=== PATIENT | female | born 1980 | race African-American/Black ===

== ENCOUNTER 2017-07-17 01:06 | Inpatient (IN) | payer MEDICAID, OTHER ==
[~2017-07-17] VITALS: Ht 162.6 cm; Wt 77.6 kg
[2017-07-17] VITALS (56 sets, daily range): BP systolic 39–195; BP diastolic 22–134
[~2017-07-17 01:06] MED LIST: HYDR25TA PO; INSLAN SQ; INSU100C3 SQ; INSU100C6 SQ; LOT10 PO; METO-293 PO; REGLAN
[2017-07-17] MEDS ORDERED: ONDANSETRON HCL 4MG/2ML VIAL IV STA (01:45)
[2017-07-17] MEDS ORDERED: MORPHINE SULFATE 4 MG/ML CPJ (NOT FOR IM USE) IV STA (01:45)
[2017-07-17 02:21] LABS: HEMATOCRIT. 29.2 % (36.0-48.0); HEMOGLOBIN. 9.1 g/dL (12.0-16.0); MEAN CORPUSCULAR HEMOGLOBIN 27.1 pg (28.0-32.0); MEAN CORPUSCULAR VOLUME 86.8 fL (81.0-99.0); MEAN PLATELET VOLUME 10.5 fl (7.4-10.4); PLATELET 581 x1000/uL (130-400); RED BLOOD CELL COUNT 3.36 mill/uL (4.2-5.4); RED CELL DISTRIBUTION WIDTH 16.5 % (11.6-14.6)
[2017-07-17 02:24] LABS: INR 1.7; PROTHROMBIN TIME 18.1 sec (9.4-11.6)
[2017-07-17 02:25] LABS: HCG SCREEN NEGATIVE
[2017-07-17 02:39] LABS: CARBON DIOXIDE 22 mEq/L (21-32); CHLORIDE 89 mEq/L (98-107); ETHANOL BLOOD < 10 mg/dL
[2017-07-17 03:01] LABS: TROPONIN I 0.95 ng/mL (0.00-0.04)
[2017-07-17] MEDS ORDERED: SODIUM CHLORIDE 0.9% 1,000 ML IV NR (03:06)
[2017-07-17] MEDS ORDERED: ASPIRIN 81MG TABLET PO NR (03:15)
[2017-07-17] MEDS ORDERED: NITROGLYCERIN OINT 1GM/INCH UDPKT TD NR (03:15)
[2017-07-17] MEDS ORDERED: FENTANYL CITRATE/PF 50MCG/ML 2ML VIAL IV NR (03:15)
[2017-07-17] MEDS ORDERED: LEVOFLOXACIN 750MG PREMIX 150 ML IV NR (03:15)
[2017-07-17] MEDS ORDERED: METRONIDAZOLE 500 MG PREMIX 100 ML IV NR (03:15)
[2017-07-17] MEDS ORDERED: FENTANYL CITRATE/PF 50MCG/ML 2ML VIAL IV ONE ×2 (04:30→04:45)
[2017-07-17] MEDS ORDERED: VANCOMYCIN 1 G PREMIX 200 ML IV ONE (04:45)
[2017-07-17] MEDS ORDERED: TETANUS, DIPHTHERIA, PERTUSSIS VAC/PF 0.5ML (>7YR OLD) IM ONE (04:45)
[2017-07-17 04:52] LABS: PLATELET ESTIMATE MARKEDLY INCREASED
[2017-07-17] MEDS ORDERED: NOREPINEPHRINE 4 MG in DEXT 5% WATER 246 ML IV NR ×2 (08:15→09:00)
[2017-07-17] MEDS ORDERED: CLONIDINE 0.1MG TABLET PO PRN (08:15)
[2017-07-17] MEDS ORDERED: MAGNESIUM/ALUMINUM HYDROXIDE/SIMETHICONE 30ML UDC PO PRN (08:15)
[2017-07-17] MEDS ORDERED: MORPHINE SULFATE 4 MG/ML CPJ (NOT FOR IM USE) IV PRN (08:15)
[2017-07-17] MEDS ORDERED: NA PHOS,M-B/NA PHOS,DI-BA ENEMA 118ML PR PRN (08:15)
[2017-07-17] MEDS ORDERED: ACETAMINOPHEN 325MG TABLET PO PRN (08:15)
[2017-07-17] MEDS ORDERED: ACETAMINOPHEN 650MG SUPP PR PRN (08:15)
[2017-07-17] MEDS ORDERED: DOCUSATE SODIUM 100MG CAPSULE PO PRN (08:15)
[2017-07-17] MEDS ORDERED: ONDANSETRON HCL 4MG/2ML VIAL IV PRN (08:15)
[2017-07-17] MEDS ORDERED: HYDROCODONE/ACETAMINOPHEN 5/325MG TABLET PO PRN (08:15)
[2017-07-17] MEDS ORDERED: IPRATROPIUM/ALBUTEROL 0.5-3(2.5)MG/3ML NEB INH PRN (08:15)
[2017-07-17] MEDS ORDERED: GUAIFENESIN 200MG/10ML SUGAR FREE UDC PO PRN (08:15)
[2017-07-17] MEDS ORDERED: SODIUM CHLORIDE 0.9% 1000ML BAG (SEPSIS BOLUS) IV ONE (08:30)
[2017-07-17] MEDS ORDERED: SODIUM CHLORIDE 0.9% 250 ML IV NR (09:00)
[2017-07-17 11:33] LABS: T4 FREE 0.93 ng/dL (0.76-1.46)
[2017-07-17] MEDS ORDERED: INSULIN LISPRO 100 UNITS/ML SUBCUT SCH (11:45)
[2017-07-17] MEDS ORDERED: HYDROMORPHONE HCL/PF 2MG/ML CPJ IV PRN (11:45)
[2017-07-17] MEDS: INSULIN LISPRO (LOW DOSE) 100 UNITS/ML SUBCUT SCH ×3 (12:00→21:00)
[2017-07-17] MEDS: BLOOD SUGAR DIAGNOSTIC STRIP TEST SCH ×3 (12:21→21:06)
[2017-07-17] MEDS: SODIUM CHLORIDE 0.45% 1,000 ML IV SCH (12:24)
[2017-07-17] MEDS ORDERED: MEROPENEM 1,000 MG in SODIUM CHLORIDE 0.9% 100 ML IV SCH (12:30)
[2017-07-17] MEDS ORDERED: SODIUM CHLORIDE 0.9% 500 ML IV NR ×2 (13:30→17:30)
[2017-07-17 14:06] LABS: BG BASE EXCESS -4.2 mmol/L (-2.0-2.0); BG CARBOXYHEMOGLOBIN 0.5 % (0.5-1.5); BG DEOXYHEMOGLOBIN 2.5 % (0.0-5.0); BG FRACTION INSPIRED OXYGEN 28; BG HCO3 ACT 19.6 mmol/L (22.0-26.0); BG METHEMOGLOBIN 0.2 % (0.0-1.5); BG OXYGEN SATURATION 97.5 % (92.0-98.5); BG OXYHEMOGLOBIN 96.8 % (94.0-97.0); BG PCO2 30.6 mmHg (35.0-45.0); BG PH 7.424 (7.350-7.450); BG PO2 113.6 mmHg (75.0-100.0); BG SAMPLE SITE RIGHT BRACHIAL; BG TOTAL HEMOGLOBIN 8.7 g/dL (12.0-18.0); BG VENT MODE NASAL CANNULA
[2017-07-17] MEDS: MEROPENEM 500MG in NORMAL SALINE 50ML IV SCH (14:38)
[2017-07-17] MEDS: SODIUM CHLORIDE 0.9% INJ 3ML FLUSH IVF SCH ×2 (14:39→21:08)
[2017-07-17] MEDS ORDERED: VANCOMYCIN 500 MG PREMIX 100 ML IV NR (15:00)
[2017-07-17 15:18] LABS: CREATINE KINASE MB FRACTION 6.5 ng/mL (0.5-3.6)
[2017-07-17 15:39] LABS: TROPONIN I 0.98 ng/mL (0.00-0.04)
[2017-07-17] MEDS: LORAZEPAM 2MG/ML CPJ IM PRN (17:38)
[2017-07-17] MEDS: HYDROMORPHONE HCL/PF 2MG/ML CPJ IV PRN (20:44)
[2017-07-17] MEDS: PHENYLEPHRINE 20 MG in DEXT 5% WATER 248 ML IV PRN (21:27)
[2017-07-17 23:32] LABS: CREATINE KINASE MB FRACTION 6.4 ng/mL (0.5-3.6)
[2017-07-18] VITALS (100 sets, daily range): BP systolic 50–197; BP diastolic 14–122
[2017-07-18] MEDS: PHENYLEPHRINE 20 MG in DEXT 5% WATER 248 ML IV PRN ×4 (00:21→22:10)
[2017-07-18 00:22] LABS: TROPONIN I 1.1 ng/mL (0.00-0.04)
[2017-07-18] MEDS: IPRATROPIUM/ALBUTEROL 0.5-3(2.5)MG/3ML NEB INH SCH ×4 (02:04→21:08)
[2017-07-18] MEDS: HYDROMORPHONE HCL/PF 2MG/ML CPJ IV PRN ×2 (05:04→16:08)
[2017-07-18] MEDS: SODIUM CHLORIDE 0.9% INJ 3ML FLUSH IVF SCH ×3 (05:41→21:12)
[2017-07-18] MEDS: BLOOD SUGAR DIAGNOSTIC STRIP TEST SCH ×4 (05:41→21:12)
[2017-07-18] MEDS: INSULIN LISPRO (LOW DOSE) 100 UNITS/ML SUBCUT SCH ×4 (05:42→21:00)
[2017-07-18 06:07] LABS: HEMATOCRIT. 25.5 % (36.0-48.0); HEMOGLOBIN. 7.6 g/dL (12.0-16.0); MEAN CORPUSCULAR HEMOGLOBIN 26.5 pg (28.0-32.0); MEAN CORPUSCULAR VOLUME 89.8 fL (81.0-99.0); MEAN PLATELET VOLUME 11.4 fl (7.4-10.4); PLATELET 387 x1000/uL (130-400); RED BLOOD CELL COUNT 2.85 mill/uL (4.2-5.4); RED CELL DISTRIBUTION WIDTH 17.1 % (11.6-14.6)
[2017-07-18] MEDS ORDERED: HYDROCODONE/APAP 7.5/325MG 1 TAB TABLET PO PRN (07:15)
[2017-07-18 07:18] LABS: CHLORIDE 89 mEq/L (98-107)
[2017-07-18 07:36] LABS: CARBON DIOXIDE 16 mEq/L (21-32); CREATINE KINASE 377 IU/L (26-192); CREATINE KINASE MB FRACTION 6.7 ng/mL (0.5-3.6); HDL CHOLESTEROL 7 mg/dL (40-59); LDL CHOLESTEROL 13 mg/dL (5-100)
[2017-07-18] MEDS: SODIUM CHLORIDE 0.45% 1,000 ML IV SCH (08:00)
[2017-07-18 08:50] LABS: BG BASE EXCESS -5.4 mmol/L (-2.0-2.0); BG CARBOXYHEMOGLOBIN 0.1 % (0.5-1.5); BG DEOXYHEMOGLOBIN 5.5 % (0.0-5.0); BG FRACTION INSPIRED OXYGEN 34; BG HCO3 ACT 19.4 mmol/L (22.0-26.0); BG METHEMOGLOBIN 0.6 % (0.0-1.5); BG OXYGEN SATURATION 94.5 % (92.0-98.5); BG OXYHEMOGLOBIN 93.8 % (94.0-97.0); BG PCO2 34.6 mmHg (35.0-45.0); BG PH 7.366 (7.350-7.450); BG PO2 82.2 mmHg (75.0-100.0); BG SAMPLE SITE RIGHT BRACHIAL; BG TOTAL HEMOGLOBIN 8.1 g/dL (12.0-18.0); BG VENT MODE NASAL CANNULA
[2017-07-18] MEDS ORDERED: PANTOPRAZOLE SODIUM 40 MG/VIAL IV SCH (09:00)
[2017-07-18] MEDS ORDERED: HYDROCODONE/ACETAMINOPHEN 5/325MG TABLET PO PRN (09:00)
[2017-07-18] MEDS: LORAZEPAM 2MG/ML CPJ IM PRN (11:46)
[2017-07-18] MEDS: VANCOMYCIN IV SCH (13:20)
[2017-07-18] MEDS: [UNRECOGNIZED DRUG - OTHER] IV SCH (13:20)
[2017-07-18] MEDS: CEFTAZIDIME PENTAHYDRATE IV SCH (13:20)
[2017-07-18] MEDS ORDERED: LIDOCAINE HCL 1% 20ML VIAL (Pyxis) INJ ONE (14:13)
[2017-07-18] MEDS: MEROPENEM 500MG in NORMAL SALINE 50ML IV SCH (14:35)
[2017-07-18] MEDS ORDERED: HEPARIN SODIUM 1,000 UNIT/1ML VIAL IV NR (16:15)
[2017-07-18 16:27] LABS: PLATELET ESTIMATE NORMAL
[2017-07-18] MEDS: HYDROCODONE/ACETAMINOPHEN 10/325MG TABLET PO PRN (18:57)
[2017-07-18 19:22] LABS: HEPATITIS B SURFACE ANTIGEN NEGATIVE
[2017-07-18 19:50] LABS: HEPATITIS B CORE AB IGM NEGATIVE
[2017-07-18 19:52] LABS: HEPATITIS A AB IGM NEGATIVE (NEGATIVE)
[2017-07-19] VITALS (98 sets, daily range): BP systolic 58–199; BP diastolic 15–134
[2017-07-19] MEDS: BLOOD SUGAR DIAGNOSTIC STRIP TEST SCH ×4 (06:04→21:30)
[2017-07-19] MEDS: INSULIN LISPRO (LOW DOSE) 100 UNITS/ML SUBCUT SCH ×3 (06:05→21:00)
[2017-07-19] MEDS: SODIUM CHLORIDE 0.9% INJ 3ML FLUSH IVF SCH ×3 (06:21→21:39)
[2017-07-19 07:00] LABS: PHOSPHORUS 5.9 mg/dL (2.5-4.9)
[2017-07-19] MEDS: SODIUM CHLORIDE 0.45% 1,000 ML IV SCH (07:23)
[2017-07-19 07:34] LABS: HEMATOCRIT. 34.3 % (36.0-48.0); HEMOGLOBIN. 11.1 g/dL (12.0-16.0); MEAN CORPUSCULAR HEMOGLOBIN 28.3 pg (28.0-32.0); MEAN CORPUSCULAR VOLUME 87.6 fL (81.0-99.0); MEAN PLATELET VOLUME 11.8 fl (7.4-10.4); PLATELET 156 x1000/uL (130-400); RED BLOOD CELL COUNT 3.91 mill/uL (4.2-5.4); RED CELL DISTRIBUTION WIDTH 15.9 % (11.6-14.6)
[2017-07-19] MEDS: IPRATROPIUM/ALBUTEROL 0.5-3(2.5)MG/3ML NEB INH SCH ×3 (07:36→20:15)
[2017-07-19] MEDS: PANTOPRAZOLE SODIUM 40 MG/VIAL IV SCH (08:21)
[2017-07-19] MEDS: PHENYLEPHRINE 20 MG in DEXT 5% WATER 248 ML IV PRN ×2 (08:22→12:30)
[2017-07-19] MEDS: HYDROMORPHONE HCL/PF 2MG/ML CPJ IV PRN ×4 (08:23→23:33)
[2017-07-19] MEDS: DIPHENHYDRAMINE 50MG/ML VIAL IV PRN ×3 (08:33→19:12)
[2017-07-19] MEDS: LORAZEPAM 2MG/ML CPJ IV PRN ×2 (08:55→15:24)
[2017-07-19] MEDS ORDERED: MAGNESIUM 2 G PREMIX 50 ML IV SCH (09:00)
[2017-07-19] MEDS: HYDROCODONE/ACETAMINOPHEN 10/325MG TABLET PO PRN ×2 (10:44→20:10)
[2017-07-19 10:59] LABS: PLATELET ESTIMATE NORMAL
[2017-07-19] MEDS ORDERED: LORAZEPAM 2MG/ML CPJ IV PRN (11:00)
[2017-07-19] MEDS ORDERED: CEFTAZIDIME XX SCH (12:15)
[2017-07-19] MEDS ORDERED: QUETIAPINE FUMARATE 25MG TABLET PO SCH ×3 (12:15→21:00)
[2017-07-19] MEDS ORDERED: VANCOMYCIN XX SCH (12:15)
[2017-07-19] MEDS ORDERED: QUETIAPINE FUMARATE 25MG TABLET PO NR (13:00)
[2017-07-19] MEDS ORDERED: PHENYLEPHRINE 80 MG in DEXT 5% WATER 492 ML IV PRN (17:00)
[2017-07-19] MEDS: CEFTAZIDIME PENTAHYDRATE IV SCH (18:43)
[2017-07-19] MEDS: VANCOMYCIN IV SCH (18:43)
[2017-07-19] MEDS: [UNRECOGNIZED DRUG - OTHER] IV SCH (18:43)
[2017-07-19] MEDS ORDERED: HALOPERIDOL LACTATE 5MG/ML VIAL IM NR (21:00)
[2017-07-19] MEDS: DEXTROSE 50% WATER 50ML SYRINGE IV PRN ×2 (21:19→22:06)
[2017-07-19] MEDS: QUETIAPINE FUMARATE 25MG TABLET PO SCH (21:29)
[2017-07-19] MEDS ORDERED: DEXTROSE 10% WATER 250 ML IV NR (22:30)
[2017-07-20] VITALS (93 sets, daily range): BP systolic 70–195; BP diastolic 32–102
[2017-07-20] MEDS: IPRATROPIUM/ALBUTEROL 0.5-3(2.5)MG/3ML NEB INH SCH ×4 (02:00→20:39)
[2017-07-20] MEDS: SODIUM CHLORIDE 0.45% 1,000 ML IV SCH ×2 (02:08→20:25)
[2017-07-20] MEDS: BLOOD SUGAR DIAGNOSTIC STRIP TEST SCH ×4 (06:11→21:11)
[2017-07-20] MEDS: INSULIN LISPRO (LOW DOSE) 100 UNITS/ML SUBCUT SCH ×4 (06:12→21:00)
[2017-07-20] MEDS: SODIUM CHLORIDE 0.9% INJ 3ML FLUSH IVF SCH ×3 (06:13→21:17)
[2017-07-20] MEDS: QUETIAPINE FUMARATE 25MG TABLET PO SCH ×2 (09:00→21:11)
[2017-07-20 09:02] LABS: HEMATOCRIT. 32.5 % (36.0-48.0); HEMOGLOBIN. 10.4 g/dL (12.0-16.0); MEAN CORPUSCULAR HEMOGLOBIN 28.2 pg (28.0-32.0); MEAN CORPUSCULAR VOLUME 88.2 fL (81.0-99.0); RED BLOOD CELL COUNT 3.69 mill/uL (4.2-5.4); RED CELL DISTRIBUTION WIDTH 16.1 % (11.6-14.6)
[2017-07-20 10:47] LABS: PLATELET ESTIMATE MARKEDLY DECREASED
[2017-07-20 10:50] LABS: MEAN PLATELET VOLUME 10.6 fl (7.4-10.4); PLATELET 39 x1000/uL (130-400)
[2017-07-20] MEDS: PANTOPRAZOLE SODIUM 40 MG/VIAL IV SCH (12:08)
[2017-07-20] MEDS: PERIT DIALYSIS IV SCH (14:10)
[2017-07-20] MEDS: DEXT IV SCH (14:10)
[2017-07-20] MEDS: CEFTAZIDIME PENTAHYDRATE IV SCH (14:10)
[2017-07-20] MEDS: HYDROMORPHONE HCL/PF 2MG/ML CPJ IV PRN (18:48)
[2017-07-21] VITALS (89 sets, daily range): BP systolic 78–177; BP diastolic 28–142
[2017-07-21] MEDS: HYDROMORPHONE HCL/PF 2MG/ML CPJ IV PRN ×3 (00:01→14:41)
[2017-07-21] MEDS: DIPHENHYDRAMINE 50MG/ML VIAL IV PRN ×3 (00:01→18:21)
[2017-07-21] MEDS: LORAZEPAM 2MG/ML CPJ IV PRN ×3 (00:39→17:26)
[2017-07-21] MEDS: IPRATROPIUM/ALBUTEROL 0.5-3(2.5)MG/3ML NEB INH SCH ×4 (02:08→20:05)
[2017-07-21 05:20] LABS: HEMATOCRIT. 29.4 % (36.0-48.0); HEMOGLOBIN. 9.6 g/dL (12.0-16.0); MEAN CORPUSCULAR HEMOGLOBIN 28.5 pg (28.0-32.0); MEAN CORPUSCULAR VOLUME 87.4 fL (81.0-99.0); MEAN PLATELET VOLUME 11.3 fl (7.4-10.4); RED BLOOD CELL COUNT 3.37 mill/uL (4.2-5.4); RED CELL DISTRIBUTION WIDTH 16.5 % (11.6-14.6)
[2017-07-21 05:53] LABS: T4 FREE 0.7 ng/dL (0.76-1.46)
[2017-07-21] MEDS: BLOOD SUGAR DIAGNOSTIC STRIP TEST SCH ×4 (06:12→20:12)
[2017-07-21] MEDS: SODIUM CHLORIDE 0.9% INJ 3ML FLUSH IVF SCH ×3 (06:12→21:25)
[2017-07-21] MEDS: INSULIN LISPRO (LOW DOSE) 100 UNITS/ML SUBCUT SCH ×4 (06:19→20:12)
[2017-07-21] MEDS ORDERED: DIATR MEGLU/DIATRIZOATE SOLN 30ML PO SCH (09:30)
[2017-07-21] MEDS: QUETIAPINE FUMARATE 25MG TABLET PO SCH ×2 (10:19→20:12)
[2017-07-21] MEDS: PANTOPRAZOLE SODIUM 40 MG/VIAL IV SCH (10:19)
[2017-07-21] MEDS: PERIT DIALYSIS IV SCH (12:22)
[2017-07-21] MEDS: CEFTAZIDIME PENTAHYDRATE IV SCH (12:22)
[2017-07-21] MEDS: DEXT IV SCH (12:22)
[2017-07-21 12:33] LABS: NUCLEATED RED BLOOD CELLS 1 /100 WBC
[2017-07-21 12:36] LABS: PLATELET ESTIMATE MARKEDLY DECREASED
[2017-07-21 12:43] LABS: PLATELET 11 x1000/uL (130-400)
[2017-07-21] MEDS ORDERED: LIDOCAINE HCL/PF 1% 2ML VIAL ONE (14:18)
[2017-07-21] MEDS ORDERED: IOHEXOL-300 100 ML BOTTLE ONE (14:32)
[2017-07-21] MEDS ORDERED: SODIUM CHLORIDE 0.9% 10ML VIAL ONE (14:32)
[2017-07-21] MEDS: CEFTAZIDIME PENTAHYDRATE 1 G in DEXTROSE 5% WATER 50 ML IV SCH (14:50)
[2017-07-22] VITALS (80 sets, daily range): BP systolic 101–182; BP diastolic 28–105
[2017-07-22] MEDS: DIPHENHYDRAMINE 50MG/ML VIAL IV PRN ×2 (00:57→22:54)
[2017-07-22] MEDS: HYDROMORPHONE HCL/PF 2MG/ML CPJ IV PRN ×3 (00:57→23:30)
[2017-07-22] MEDS: LORAZEPAM 2MG/ML CPJ IV PRN ×3 (01:49→23:29)
[2017-07-22] MEDS: IPRATROPIUM/ALBUTEROL 0.5-3(2.5)MG/3ML NEB INH SCH ×4 (01:55→21:02)
[2017-07-22] MEDS: SODIUM CHLORIDE 0.9% INJ 3ML FLUSH IVF SCH ×3 (06:06→21:50)
[2017-07-22] MEDS: BLOOD SUGAR DIAGNOSTIC STRIP TEST SCH ×4 (06:33→21:00)
[2017-07-22] MEDS: DEXTROSE 50% WATER 50ML SYRINGE IV PRN ×2 (06:39→22:03)
[2017-07-22] MEDS: INSULIN LISPRO (LOW DOSE) 100 UNITS/ML SUBCUT SCH ×4 (06:46→21:00)
[2017-07-22 07:38] LABS: HEMATOCRIT 32.6 % (36.0-48.0); HEMOGLOBIN 10.5 g/dL (12.0-16.0); MEAN CORPUSCULAR HEMOGLOBIN 28.4 pg (28.0-32.0); MEAN CORPUSCULAR VOLUME 88.6 fL (81.0-99.0); RED BLOOD CELL COUNT 3.68 mill/uL (4.2-5.4); RED CELL DISTRIBUTION WIDTH 16.2 % (11.6-14.6)
[2017-07-22 07:50] LABS: PLATELET 31 x1000/uL (130-400)
[2017-07-22] MEDS: PANTOPRAZOLE SODIUM 40 MG/VIAL IV SCH (08:43)
[2017-07-22] MEDS: QUETIAPINE FUMARATE 25MG TABLET PO SCH ×2 (08:44→21:40)
[2017-07-22] MEDS ORDERED: IOHEXOL-350 100 ML BOTTLE ONE (12:47)
[2017-07-22] MEDS ORDERED: SODIUM CHLORIDE 0.9% 10ML VIAL ONE (12:47)
[2017-07-22] MEDS: CEFTAZIDIME PENTAHYDRATE 1 G in DEXTROSE 5% WATER 50 ML IV SCH (15:11)
[2017-07-22] MEDS: ACYCLOVIR 400 MG TABLET PO SCH (15:13)
[2017-07-22] MEDS ORDERED: METOCLOPRAMIDE HCL 10MG/2ML VIAL IV SCH (18:00)
[2017-07-22] MEDS: DEXTROSE 5% WATER 1,000 ML IV SCH (22:33)
[2017-07-22] MEDS: METOCLOPRAMIDE HCL 10MG/2ML VIAL IV SCH (23:29)
[2017-07-23] VITALS (14 sets, daily range): BP systolic 115–173; BP diastolic 41–90
[2017-07-23] MEDS: IPRATROPIUM/ALBUTEROL 0.5-3(2.5)MG/3ML NEB INH SCH ×4 (01:53→20:40)
[2017-07-23] MEDS: ACYCLOVIR 400 MG TABLET PO SCH ×2 (02:43→13:18)
[2017-07-23] MEDS: HYDROMORPHONE HCL/PF 2MG/ML CPJ IV PRN ×4 (04:24→20:39)
[2017-07-23] MEDS: SODIUM CHLORIDE 0.9% INJ 3ML FLUSH IVF SCH ×3 (05:29→21:04)
[2017-07-23] MEDS: METOCLOPRAMIDE HCL 10MG/2ML VIAL IV SCH ×3 (05:38→17:31)
[2017-07-23 07:05] LABS: HEMATOCRIT. 29.8 % (36.0-48.0); HEMOGLOBIN. 9.6 g/dL (12.0-16.0); MEAN CORPUSCULAR HEMOGLOBIN 28.2 pg (28.0-32.0); MEAN CORPUSCULAR VOLUME 88.1 fL (81.0-99.0); MEAN PLATELET VOLUME 10.6 fl (7.4-10.4); RED BLOOD CELL COUNT 3.39 mill/uL (4.2-5.4); RED CELL DISTRIBUTION WIDTH 16.1 % (11.6-14.6)
[2017-07-23] MEDS: INSULIN LISPRO (LOW DOSE) 100 UNITS/ML SUBCUT SCH ×4 (07:38→21:24)
[2017-07-23] MEDS: BLOOD SUGAR DIAGNOSTIC STRIP TEST SCH ×4 (07:38→20:45)
[2017-07-23 07:51] LABS: PHOSPHORUS 3.3 mg/dL (2.5-4.9)
[2017-07-23 08:12] LABS: PLATELET 19 x1000/uL (130-400)
[2017-07-23] MEDS: QUETIAPINE FUMARATE 25MG TABLET PO SCH ×2 (08:14→20:39)
[2017-07-23] MEDS: PANTOPRAZOLE SODIUM 40 MG/VIAL IV SCH (08:14)
[2017-07-23] MEDS: LORAZEPAM 2MG/ML CPJ IV PRN ×2 (11:28→20:46)
[2017-07-23] MEDS: DEXTROSE 50% WATER 50ML SYRINGE IV PRN (11:28)
[2017-07-23 11:39] LABS: NUCLEATED RED BLOOD CELLS 2 /100 WBC
[2017-07-23 11:40] LABS: PLATELET ESTIMATE MARKEDLY DECREASED
[2017-07-23] MEDS ORDERED: VANCOMYCIN 750 MG PREMIX 150 ML IV SCH (13:00)
[2017-07-23] MEDS: CEFTAZIDIME PENTAHYDRATE 1 G in DEXTROSE 5% WATER 50 ML IV SCH (15:41)
[2017-07-23] MEDS: DEXTROSE 5% WATER 1,000 ML IV SCH (15:45)
[2017-07-24] VITALS (12 sets, daily range): BP systolic 127–172; BP diastolic 40–76
[2017-07-24] MEDS: METOCLOPRAMIDE HCL 10MG/2ML VIAL IV SCH ×4 (00:11→17:31)
[2017-07-24] MEDS: ACYCLOVIR 400 MG TABLET PO SCH ×2 (02:11→12:00)
[2017-07-24] MEDS: LORAZEPAM 2MG/ML CPJ IV PRN ×2 (02:18→19:57)
[2017-07-24] MEDS: HYDROMORPHONE HCL/PF 2MG/ML CPJ IV PRN ×6 (02:18→19:57)
[2017-07-24] MEDS: IPRATROPIUM/ALBUTEROL 0.5-3(2.5)MG/3ML NEB INH SCH ×3 (03:15→14:26)
[2017-07-24] MEDS: SODIUM CHLORIDE 0.9% INJ 3ML FLUSH IVF SCH ×3 (05:39→22:32)
[2017-07-24] MEDS: BLOOD SUGAR DIAGNOSTIC STRIP TEST SCH ×4 (07:33→20:24)
[2017-07-24] MEDS: INSULIN LISPRO (LOW DOSE) 100 UNITS/ML SUBCUT SCH ×4 (08:00→20:29)
[2017-07-24] MEDS: PANTOPRAZOLE SODIUM 40 MG/VIAL IV SCH (08:33)
[2017-07-24] MEDS: QUETIAPINE FUMARATE 25MG TABLET PO SCH ×2 (08:34→20:22)
[2017-07-24 10:16] LABS: HEMOGLOBIN. 9.6 g/dL (12.0-16.0); MEAN CORPUSCULAR HEMOGLOBIN 28.1 pg (28.0-32.0); MEAN PLATELET VOLUME 11.3 fl (7.4-10.4); PLATELET 51 x1000/uL (130-400); RED BLOOD CELL COUNT 3.41 mill/uL (4.2-5.4); RED CELL DISTRIBUTION WIDTH 15.5 % (11.6-14.6)
[2017-07-24] MEDS: DEXTROSE 5% WATER 1,000 ML IV SCH (11:39)
[2017-07-24] MEDS: CEFTAZIDIME PENTAHYDRATE 1 G in DEXTROSE 5% WATER 50 ML IV SCH (14:52)
[2017-07-24] MEDS: ACETAMINOPHEN 650MG/20.3ML UDC GT PRN (20:23)
[2017-07-24 21:44] LABS: PLATELET ESTIMATE MARKEDLY DECREASED
[2017-07-25] VITALS (33 sets, daily range): BP systolic 85–220; BP diastolic 30–146
[2017-07-25] MEDS: DIPHENHYDRAMINE 50MG/ML VIAL IV PRN ×2 (00:24→21:27)
[2017-07-25] MEDS: METOCLOPRAMIDE HCL 10MG/2ML VIAL IV SCH ×4 (00:25→18:28)
[2017-07-25] MEDS: HYDROMORPHONE HCL/PF 2MG/ML CPJ IV PRN ×8 (00:25→21:07)
[2017-07-25] MEDS: ACYCLOVIR 400 MG TABLET PO SCH ×2 (01:01→13:16)
[2017-07-25] MEDS: IPRATROPIUM/ALBUTEROL 0.5-3(2.5)MG/3ML NEB INH SCH ×4 (01:21→21:39)
[2017-07-25] MEDS: LORAZEPAM 2MG/ML CPJ IV PRN ×2 (02:39→15:49)
[2017-07-25] MEDS: SODIUM CHLORIDE 0.9% INJ 3ML FLUSH IVF SCH ×3 (05:14→21:25)
[2017-07-25 06:50] LABS: HEMOGLOBIN. 9.3 g/dL (12.0-16.0); MEAN CORPUSCULAR HEMOGLOBIN 28.2 pg (28.0-32.0); MEAN CORPUSCULAR VOLUME 88.1 fL (81.0-99.0); MEAN PLATELET VOLUME 11.3 fl (7.4-10.4); RED BLOOD CELL COUNT 3.29 mill/uL (4.2-5.4); RED CELL DISTRIBUTION WIDTH 15.5 % (11.6-14.6)
[2017-07-25] MEDS: BLOOD SUGAR DIAGNOSTIC STRIP TEST SCH ×4 (07:59→21:24)
[2017-07-25] MEDS: INSULIN LISPRO (LOW DOSE) 100 UNITS/ML SUBCUT SCH ×4 (08:00→21:51)
[2017-07-25] MEDS: QUETIAPINE FUMARATE 25MG TABLET PO SCH ×2 (08:02→21:06)
[2017-07-25] MEDS: PANTOPRAZOLE SODIUM 40 MG/VIAL IV SCH (08:02)
[2017-07-25 08:23] LABS: PLATELET 28 x1000/uL (130-400)
[2017-07-25] MEDS: DEXTROSE 5% WATER 1,000 ML IV SCH (10:37)
[2017-07-25 10:41] LABS: NUCLEATED RED BLOOD CELLS 2 /100 WBC; PLATELET ESTIMATE MARKEDLY DECREASED
[2017-07-25] MEDS ORDERED: VANCOMYCIN 750 MG PREMIX 150 ML IV NR (15:00)
[2017-07-25] MEDS: CEFTAZIDIME PENTAHYDRATE 1 G in DEXTROSE 5% WATER 50 ML IV SCH (15:15)
[2017-07-25] MEDS: DEXT 5%/0.9% NACL 1,000 ML IV SCH (15:49)
[2017-07-26] VITALS (19 sets, daily range): BP systolic 117–149; BP diastolic 37–54
[2017-07-26] MEDS: LORAZEPAM 2MG/ML CPJ IV PRN (00:46)
[2017-07-26] MEDS: METOCLOPRAMIDE HCL 10MG/2ML VIAL IV SCH ×4 (00:46→17:40)
[2017-07-26] MEDS: ACYCLOVIR 400 MG TABLET PO SCH ×2 (00:46→12:11)
[2017-07-26] MEDS: HYDROMORPHONE HCL/PF 2MG/ML CPJ IV PRN ×7 (00:48→21:28)
[2017-07-26] MEDS: IPRATROPIUM/ALBUTEROL 0.5-3(2.5)MG/3ML NEB INH SCH ×4 (02:08→20:30)
[2017-07-26] MEDS: SODIUM CHLORIDE 0.9% INJ 3ML FLUSH IVF SCH ×3 (05:57→21:27)
[2017-07-26] MEDS: DIPHENHYDRAMINE 50MG/ML VIAL IV PRN (05:58)
[2017-07-26 06:54] LABS: MEAN CORPUSCULAR HEMOGLOBIN 28.1 pg (28.0-32.0); MEAN CORPUSCULAR VOLUME 88.8 fL (81.0-99.0); MEAN PLATELET VOLUME 12.2 fl (7.4-10.4); RED BLOOD CELL COUNT 2.42 mill/uL (4.2-5.4); RED CELL DISTRIBUTION WIDTH 15.5 % (11.6-14.6)
[2017-07-26 07:06] LABS: HEMOGLOBIN. 6.8 g/dL (12.0-16.0)
[2017-07-26 07:07] LABS: HEMATOCRIT. 21.5 % (36.0-48.0)
[2017-07-26 07:08] LABS: PLATELET 25 x1000/uL (130-400)
[2017-07-26] MEDS: BLOOD SUGAR DIAGNOSTIC STRIP TEST SCH ×4 (07:30→21:31)
[2017-07-26] MEDS: INSULIN LISPRO (LOW DOSE) 100 UNITS/ML SUBCUT SCH ×4 (08:00→21:30)
[2017-07-26] MEDS: PANTOPRAZOLE SODIUM 40 MG/VIAL IV SCH (08:29)
[2017-07-26] MEDS: QUETIAPINE FUMARATE 25MG TABLET PO SCH ×2 (08:30→21:27)
[2017-07-26 09:20] LABS: NUCLEATED RED BLOOD CELLS 1 /100 WBC; PLATELET ESTIMATE MARKEDLY DECREASED
[2017-07-26 09:27] LABS: HEMOGLOBIN 8.8 g/dL (12.0-16.0)
[2017-07-26] MEDS: DEXT 5%/0.9% NACL 1,000 ML IV SCH (10:42)
[2017-07-26] MEDS: CEFTAZIDIME PENTAHYDRATE 1 G in DEXTROSE 5% WATER 50 ML IV SCH (14:43)
[2017-07-27] VITALS (12 sets, daily range): BP systolic 91–171; BP diastolic 35–87
[2017-07-27] MEDS: IPRATROPIUM/ALBUTEROL 0.5-3(2.5)MG/3ML NEB INH SCH ×4 (00:46→21:10)
[2017-07-27] MEDS: METOCLOPRAMIDE HCL 10MG/2ML VIAL IV SCH ×5 (00:46→23:49)
[2017-07-27] MEDS: ACYCLOVIR 400 MG TABLET PO SCH ×3 (00:46→23:50)
[2017-07-27] MEDS: HYDROMORPHONE HCL/PF 2MG/ML CPJ IV PRN ×7 (00:47→23:23)
[2017-07-27] MEDS: SODIUM CHLORIDE 0.9% INJ 3ML FLUSH IVF SCH ×3 (05:07→21:50)
[2017-07-27] MEDS: BLOOD SUGAR DIAGNOSTIC STRIP TEST SCH ×4 (07:30→20:46)
[2017-07-27 07:36] LABS: HEMATOCRIT. 34.5 % (36.0-48.0); HEMOGLOBIN. 11.1 g/dL (12.0-16.0); MEAN CORPUSCULAR HEMOGLOBIN 28.5 pg (28.0-32.0); MEAN PLATELET VOLUME 11.3 fl (7.4-10.4); PLATELET 56 x1000/uL (130-400); RED BLOOD CELL COUNT 3.88 mill/uL (4.2-5.4); RED CELL DISTRIBUTION WIDTH 15.1 % (11.6-14.6)
[2017-07-27] MEDS: INSULIN LISPRO (LOW DOSE) 100 UNITS/ML SUBCUT SCH ×4 (08:00→20:47)
[2017-07-27] MEDS: DEXT 5%/0.9% NACL 1,000 ML IV SCH (08:05)
[2017-07-27 08:40] LABS: HAPTOGLOBIN 175 mg/dL (30-200)
[2017-07-27] MEDS: QUETIAPINE FUMARATE 25MG TABLET PO SCH ×2 (08:41→20:08)
[2017-07-27] MEDS: PANTOPRAZOLE SODIUM 40 MG/VIAL IV SCH (08:41)
[2017-07-27] MEDS: LORAZEPAM 2MG/ML CPJ IV PRN ×2 (08:42→20:07)
[2017-07-27 12:21] LABS: NUCLEATED RED BLOOD CELLS 3 /100 WBC; PLATELET ESTIMATE DECREASED
[2017-07-27] MEDS ORDERED: DOCUSATE SODIUM 250MG CAPSULE PO SCH (13:45)
[2017-07-27] MEDS: DIPHENHYDRAMINE 50MG/ML VIAL IV PRN (14:28)
[2017-07-27] MEDS: LACTULOSE 20G/30ML UDC PO SCH ×2 (14:43→21:50)
[2017-07-27] MEDS: CEFTAZIDIME PENTAHYDRATE 1 G in DEXTROSE 5% WATER 50 ML IV SCH (17:14)
[2017-07-27] MEDS ORDERED: VANCOMYCIN 750 MG PREMIX 150 ML IV SCH (21:00)
[2017-07-28] VITALS (12 sets, daily range): BP systolic 115–172; BP diastolic 46–69
[2017-07-28] MEDS: IPRATROPIUM/ALBUTEROL 0.5-3(2.5)MG/3ML NEB INH SCH ×4 (00:51→21:50)
[2017-07-28] MEDS: HYDROMORPHONE HCL/PF 2MG/ML CPJ IV PRN ×6 (02:57→17:54)
[2017-07-28] MEDS: METOCLOPRAMIDE HCL 10MG/2ML VIAL IV SCH ×3 (06:39→17:33)
[2017-07-28] MEDS: LACTULOSE 20G/30ML UDC PO SCH ×3 (06:40→21:06)
[2017-07-28] MEDS: SODIUM CHLORIDE 0.9% INJ 3ML FLUSH IVF SCH ×3 (06:40→21:07)
[2017-07-28] MEDS: DEXT 5%/0.9% NACL 1,000 ML IV SCH (07:25)
[2017-07-28] MEDS: INSULIN LISPRO (LOW DOSE) 100 UNITS/ML SUBCUT SCH ×4 (08:00→21:00)
[2017-07-28] MEDS: BLOOD SUGAR DIAGNOSTIC STRIP TEST SCH ×4 (08:16→21:00)
[2017-07-28] MEDS: PANTOPRAZOLE SODIUM 40 MG/VIAL IV SCH (08:37)
[2017-07-28] MEDS: DOCUSATE SODIUM 250MG CAPSULE PO SCH (08:37)
[2017-07-28] MEDS: QUETIAPINE FUMARATE 25MG TABLET PO SCH ×2 (08:38→21:05)
[2017-07-28 13:39] LABS: HEMATOCRIT. 31.5 % (36.0-48.0); HEMOGLOBIN. 9.9 g/dL (12.0-16.0); MEAN CORPUSCULAR HEMOGLOBIN 28.4 pg (28.0-32.0); MEAN CORPUSCULAR VOLUME 90.4 fL (81.0-99.0); MEAN PLATELET VOLUME 11.7 fl (7.4-10.4); RED BLOOD CELL COUNT 3.49 mill/uL (4.2-5.4); RED CELL DISTRIBUTION WIDTH 15.4 % (11.6-14.6)
[2017-07-28 13:47] LABS: PLATELET 48 x1000/uL (130-400)
[2017-07-28 14:11] LABS: PLATELET ESTIMATE MARKEDLY DECREASED
[2017-07-28] MEDS: CEFTAZIDIME PENTAHYDRATE 1 G in DEXTROSE 5% WATER 50 ML IV SCH (15:03)
[2017-07-28] MEDS ORDERED: POTASSIUM CHLORIDE 20MEQ TABLET SR PO NR (16:15)
[2017-07-28] MEDS: ACYCLOVIR 400 MG TABLET PO SCH (17:32)
[2017-07-28] MEDS: MORPHINE SULFATE 15MG TABLET SR PO SCH (21:06)
[2017-07-29] VITALS (13 sets, daily range): BP systolic 109–175; BP diastolic 47–87
[2017-07-29] MEDS: METOCLOPRAMIDE HCL 10MG/2ML VIAL IV SCH ×4 (00:06→17:33)
[2017-07-29] MEDS: DIPHENHYDRAMINE 50MG/ML VIAL IV PRN (02:07)
[2017-07-29] MEDS: HYDROMORPHONE HCL/PF 2MG/ML CPJ IV PRN ×2 (02:07→12:15)
[2017-07-29] MEDS: ACYCLOVIR 400 MG TABLET PO SCH ×2 (02:08→12:05)
[2017-07-29] MEDS: IPRATROPIUM/ALBUTEROL 0.5-3(2.5)MG/3ML NEB INH SCH ×3 (03:32→21:05)
[2017-07-29] MEDS: SODIUM CHLORIDE 0.9% INJ 3ML FLUSH IVF SCH ×3 (06:07→22:19)
[2017-07-29] MEDS: LACTULOSE 20G/30ML UDC PO SCH ×3 (06:08→21:25)
[2017-07-29 07:24] LABS: HEMATOCRIT. 32.6 % (36.0-48.0); HEMOGLOBIN. 10.4 g/dL (12.0-16.0); MEAN CORPUSCULAR HEMOGLOBIN 28.6 pg (28.0-32.0); MEAN CORPUSCULAR VOLUME 89.2 fL (81.0-99.0); MEAN PLATELET VOLUME 11.6 fl (7.4-10.4); RED BLOOD CELL COUNT 3.65 mill/uL (4.2-5.4); RED CELL DISTRIBUTION WIDTH 15.6 % (11.6-14.6)
[2017-07-29] MEDS: BLOOD SUGAR DIAGNOSTIC STRIP TEST SCH ×4 (07:29→21:23)
[2017-07-29] MEDS: INSULIN LISPRO (LOW DOSE) 100 UNITS/ML SUBCUT SCH ×4 (08:00→21:24)
[2017-07-29] MEDS: DOCUSATE SODIUM 250MG CAPSULE PO SCH (08:01)
[2017-07-29] MEDS: MORPHINE SULFATE 15MG TABLET SR PO SCH ×2 (08:02→21:23)
[2017-07-29] MEDS: QUETIAPINE FUMARATE 25MG TABLET PO SCH ×2 (08:02→21:21)
[2017-07-29] MEDS: PANTOPRAZOLE SODIUM 40 MG/VIAL IV SCH (08:02)
[2017-07-29 08:12] LABS: PLATELET 46 x1000/uL (130-400)
[2017-07-29 11:06] LABS: NUCLEATED RED BLOOD CELLS 3 /100 WBC; PLATELET ESTIMATE MARKEDLY DECREASED
[2017-07-29] MEDS: CEFTAZIDIME PENTAHYDRATE 1 G in DEXTROSE 5% WATER 50 ML IV SCH (15:04)
[2017-07-29] MEDS ORDERED: VANCOMYCIN 1 G PREMIX 200 ML IV NR (17:00)
[2017-07-29] MEDS ORDERED: INSLIS SUBCUT (21:06)
[2017-07-29] MEDS ORDERED: CEFT1VIA IJ (21:08)
[2017-07-29] MEDS ORDERED: VANC1PLA10 IV (21:08)
[2017-07-29 22:37] LABS: HEMATOCRIT. 29.8 % (36.0-48.0); HEMOGLOBIN. 9.5 g/dL (12.0-16.0); MEAN CORPUSCULAR HEMOGLOBIN 28.6 pg (28.0-32.0); MEAN CORPUSCULAR VOLUME 89.4 fL (81.0-99.0); MEAN PLATELET VOLUME 11.1 fl (7.4-10.4); RED BLOOD CELL COUNT 3.33 mill/uL (4.2-5.4); RED CELL DISTRIBUTION WIDTH 15.7 % (11.6-14.6)
[2017-07-29 22:49] LABS: CARBON DIOXIDE 22 mEq/L (21-32); CHLORIDE 108 mEq/L (98-107)
[2017-07-29 22:52] LABS: PLATELET 38 x1000/uL (130-400)
[2017-07-29 23:07] LABS: ATYPICAL LYMPHOCYTES 1; NUCLEATED RED BLOOD CELLS 4 /100 WBC; PLATELET ESTIMATE MARKEDLY DECREASED
[2017-07-30] VITALS (13 sets, daily range): BP systolic 102–141; BP diastolic 37–90
[2017-07-30] MEDS: METOCLOPRAMIDE HCL 10MG/2ML VIAL IV SCH ×5 (00:23→23:14)
[2017-07-30] MEDS: ACYCLOVIR 400 MG TABLET PO SCH ×2 (00:23→12:29)
[2017-07-30] MEDS: DEXT 5%/0.9% NACL 1,000 ML IV SCH ×2 (01:57→13:22)
[2017-07-30] MEDS: IPRATROPIUM/ALBUTEROL 0.5-3(2.5)MG/3ML NEB INH SCH ×4 (02:10→20:40)
[2017-07-30] MEDS: HYDROMORPHONE HCL/PF 2MG/ML CPJ IV PRN (05:57)
[2017-07-30] MEDS: LACTULOSE 20G/30ML UDC PO SCH ×3 (05:58→22:00)
[2017-07-30] MEDS: SODIUM CHLORIDE 0.9% INJ 3ML FLUSH IVF SCH ×3 (05:58→21:49)
[2017-07-30] MEDS: BLOOD SUGAR DIAGNOSTIC STRIP TEST SCH ×4 (07:30→20:24)
[2017-07-30] MEDS: INSULIN LISPRO (LOW DOSE) 100 UNITS/ML SUBCUT SCH ×4 (08:00→20:24)
[2017-07-30 08:52] LABS: HEMATOCRIT. 30.6 % (36.0-48.0); HEMOGLOBIN. 9.7 g/dL (12.0-16.0); MEAN CORPUSCULAR HEMOGLOBIN 28.3 pg (28.0-32.0); MEAN CORPUSCULAR VOLUME 89.5 fL (81.0-99.0); MEAN PLATELET VOLUME 11.1 fl (7.4-10.4); RED BLOOD CELL COUNT 3.42 mill/uL (4.2-5.4); RED CELL DISTRIBUTION WIDTH 15.3 % (11.6-14.6)
[2017-07-30] MEDS: QUETIAPINE FUMARATE 25MG TABLET PO SCH ×2 (08:58→21:49)
[2017-07-30] MEDS: PANTOPRAZOLE SODIUM 40 MG/VIAL IV SCH (08:58)
[2017-07-30] MEDS: MORPHINE SULFATE 15MG TABLET SR PO SCH ×2 (08:58→20:23)
[2017-07-30] MEDS: DOCUSATE SODIUM 250MG CAPSULE PO SCH (08:58)
[2017-07-30 09:06] LABS: PLATELET 29 x1000/uL (130-400)
[2017-07-30 10:44] LABS: NUCLEATED RED BLOOD CELLS 6 /100 WBC
[2017-07-30 10:45] LABS: PLATELET ESTIMATE MARKEDLY DECREASED
[2017-07-30] MEDS: CEFTAZIDIME PENTAHYDRATE 1 G in DEXTROSE 5% WATER 50 ML IV SCH (12:41)
[2017-07-30 16:03] LABS: HEMATOCRIT. 32.1 % (36.0-48.0); HEMOGLOBIN. 9.9 g/dL (12.0-16.0); MEAN CORPUSCULAR HEMOGLOBIN 28.5 pg (28.0-32.0); MEAN CORPUSCULAR VOLUME 92.2 fL (81.0-99.0); MEAN PLATELET VOLUME 11.8 fl (7.4-10.4); RED BLOOD CELL COUNT 3.48 mill/uL (4.2-5.4); RED CELL DISTRIBUTION WIDTH 16.1 % (11.6-14.6)
[2017-07-30 16:07] LABS: PLATELET 34 x1000/uL (130-400)
[2017-07-30 16:43] LABS: NUCLEATED RED BLOOD CELLS 1 /100 WBC
[2017-07-30 16:44] LABS: PLATELET ESTIMATE SLIGHTLY DECREASED
[2017-07-30] MEDS ORDERED: HYDROCODONE/ACETAMINOPHEN 5/325MG TABLET PO PRN (18:00)
[2017-07-31] VITALS (11 sets, daily range): BP systolic 99–139; BP diastolic 41–84
[2017-07-31] MEDS: IPRATROPIUM/ALBUTEROL 0.5-3(2.5)MG/3ML NEB INH SCH ×3 (02:55→15:40)
[2017-07-31] MEDS: METOCLOPRAMIDE HCL 10MG/2ML VIAL IV SCH ×3 (05:30→19:56)
[2017-07-31] MEDS: SODIUM CHLORIDE 0.9% INJ 3ML FLUSH IVF SCH ×2 (05:30→13:11)
[2017-07-31] MEDS: LACTULOSE 20G/30ML UDC PO SCH ×2 (05:30→13:11)
[2017-07-31 06:01] LABS: HEMATOCRIT. 32.4 % (36.0-48.0); HEMOGLOBIN. 10.2 g/dL (12.0-16.0); MEAN CORPUSCULAR HEMOGLOBIN 28.5 pg (28.0-32.0); MEAN CORPUSCULAR VOLUME 90.6 fL (81.0-99.0); MEAN PLATELET VOLUME 11.8 fl (7.4-10.4); RED BLOOD CELL COUNT 3.58 mill/uL (4.2-5.4); RED CELL DISTRIBUTION WIDTH 15.8 % (11.6-14.6)
[2017-07-31 06:37] LABS: PLATELET 32 x1000/uL (130-400)
[2017-07-31] MEDS: BLOOD SUGAR DIAGNOSTIC STRIP TEST SCH ×3 (07:30→17:30)
[2017-07-31] MEDS: INSULIN LISPRO (LOW DOSE) 100 UNITS/ML SUBCUT SCH ×3 (08:00→18:00)
[2017-07-31] MEDS: QUETIAPINE FUMARATE 25MG TABLET PO SCH (08:41)
[2017-07-31] MEDS: MORPHINE SULFATE 15MG TABLET SR PO SCH (08:41)
[2017-07-31] MEDS: PANTOPRAZOLE SODIUM 40 MG/VIAL IV SCH (08:41)
[2017-07-31] MEDS: DOCUSATE SODIUM 250MG CAPSULE PO SCH (08:41)
[2017-07-31 09:51] LABS: NUCLEATED RED BLOOD CELLS 6 /100 WBC; PLATELET ESTIMATE MARKEDLY DECREASED
[2017-07-31] MEDS: CEFTAZIDIME PENTAHYDRATE 1 G in DEXTROSE 5% WATER 50 ML IV SCH (14:51)
[2017-07-31] MEDS: ACETAMINOPHEN 650MG/20.3ML UDC GT PRN (14:51)
== END 2017-07-31 20:50 | disposition home health service (06) | DRG 466 ==
LOC: ER 01:06 → MICUSO 04:32 → EDBEDREQSVC 08:28 → ENRESERV 09:01 → 5EST 07-22 20:40
PROVIDERS: ADMIT Family Medicine; ATTEND Family Medicine
PROC: 02HV33Z Insertion of Infusion Device into Superior Vena Cava, Percutaneous Approach (ICD-10-PCS; principal; 2017-07-17)
PROC: B548ZZA Ultrasonography of Superior Vena Cava, Guidance (ICD-10-PCS; 2017-07-17)
PROC: 30233N1 Transfusion of Nonautologous Red Blood Cells into Peripheral Vein, Percutaneous Approach (ICD-10-PCS; 2017-07-18)
PROC: 5A1D60Z (ICD-10-PCS; 2017-07-18)
PROC: 02HV33Z Insertion of Infusion Device into Superior Vena Cava, Percutaneous Approach (ICD-10-PCS; 2017-07-18)
PROC: B548ZZA Ultrasonography of Superior Vena Cava, Guidance (ICD-10-PCS; 2017-07-18)
PROC: 30233R1 Transfusion of Nonautologous Platelets into Peripheral Vein, Percutaneous Approach (ICD-10-PCS; 2017-07-21)
DX: T85.71XA Infection and inflammatory reaction due to peritoneal dialysis catheter, initial encounter (principal); J96.00 Acute respiratory failure, unspecified whether with hypoxia or hypercapnia; R65.21 Severe sepsis with septic shock; A41.9 Sepsis, unspecified organism; E43 Unspecified severe protein-calorie malnutrition; G93.41 Metabolic encephalopathy; I50.33 Acute on chronic diastolic (congestive) heart failure; L89.159 Pressure ulcer of sacral region, unspecified stage; K65.2 Spontaneous bacterial peritonitis; K31.84 Gastroparesis; E10.43 Type 1 diabetes mellitus with diabetic autonomic (poly)neuropathy; N18.6 End stage renal disease; I31.3 Pericardial effusion (noninflammatory); I13.2 Hypertensive heart and chronic kidney disease with heart failure and with stage 5 chronic kidney disease, or end stage renal disease; I27.2 Other secondary pulmonary hypertension; E10.52 Type 1 diabetes mellitus with diabetic peripheral angiopathy with gangrene; E83.52 Hypercalcemia; D63.8 Anemia in other chronic diseases classified elsewhere; Y83.8 Other surgical procedures as the cause of abnormal reaction of the patient, or of later complication, without mention of misadventure at the time of the procedure; D69.6 Thrombocytopenia, unspecified; R45.1 Restlessness and agitation; I95.9 Hypotension, unspecified; D68.9 Coagulation defect, unspecified; A60.00 Herpesviral infection of urogenital system, unspecified; E10.22 Type 1 diabetes mellitus with diabetic chronic kidney disease; E87.1 Hypo-osmolality and hyponatremia; E87.2 Acidosis; K59.00 Constipation, unspecified; Z99.2 Dependence on renal dialysis; Z79.4 Long term (current) use of insulin; Z79.899 Other long term (current) drug therapy; Z82.49 Family history of ischemic heart disease and other diseases of the circulatory system; Z88.0 Allergy status to penicillin; Z83.3 Family history of diabetes mellitus; Z68.29 Body mass index [BMI] 29.0-29.9, adult; Y92.89 Other specified places as the place of occurrence of the external cause; Z89.519 Acquired absence of unspecified leg below knee
CPT/HCPCS: 36415; 36556; 36569; 36600; 71010; 71020; 73630; 74000; 74174; 74178; 76937; 80048; 80051; 80053; 80061; 80202; 82375; 82550; 82553; 82805; 82962; 83010; 83036; 83605; 83615; 83690; 83735; 83880; 84100; 84439; 84443; 84484; 84703; 85014; 85018; 85025; 85027; 85362; 85379; 85384; 85610; 86022; 86705; 86706; 86709; 86803; 86850; 86900; 86920; 87040; 87070; 87205; 87340; 89050; 90715; 93005; 93306; 93308; 93923; 93970; 94640; 94664; 96365; 96367; 96375; 96376; 99291; A4216; A6261; C1725; C1752; C9113; G0482; J0713; J1170; J1200; J1630; J1644; J1815; J1956; J2060; J2185; J2270; J2370; J2405; J2765; J3010; J3370; J3475; J3490; J7030; J7040; J7042; J7050; J7060; J7070; J7620; P9016; P9034; Q9963; Q9967